=== PATIENT | male | born 1975 | race Caucasian/White ===

== ENCOUNTER 2016-05-02 15:37 | Emergency (ER) | payer OTHER ==
[~2016-05-02] VITALS: Wt 122.5 kg
[~2016-05-02 15:37] MED LIST: ACULAR 3 ML3 M1 OP; ALEVE220 MG PO; AMOXICILLIN500 M2 PO; AMOXICILLIN500 MG PO; ANAPROX DS550 MG PO; ANTIVERT/2525 M1 PO; AUGMENTIN 875 M1 TAB PO; Amitriptyline H10 MG PO; B COMPLETE1 EACH PO; BACLOFEN10 MG PO; BACLOFEN20 M1 PO; BACTRIM DS 8001 TA1 PO; CIPRODEX 0.3%-7.5 ML OT; CLARITIN10 MG PO; GABAPENTIN TAB600 MG PO; HYCODAN/HYDROMET5 ML PO; HYDROCODONE BIT1 T11 PO; IBU-8800 MG PO; KEFLEX500 MG PO; LIDOCAINE VISC100 ML MM; MACROBID100 M1 PO; MEDROL DOSEPAK4 MG PO; MUSCLE RELAXER; Motrin,Rufen800 MG PO; NAPROSYN500 MG PO; NKHM; NORCO 10-325 T1 EACH PO; NORCO 5-325 TA1 EACH PO; PENICILLIN-VK500 MG PO; PERCOCET 325 MG1 TA2 PO; PREDNISONE10 MG PO; PROVENTIL0.09 MG/A1 INH; Peridex 473 ML473 ML PO; TESSALON PERLE100 M1 PO; TOBREX OPHTH S2.5 ML OPH; ULTRAM50 MG PO; ZANTAC150 MG PO; ZITHROMAX250 MG PO; ZOFRAN4 MG PO
[2016-05-02 15:40] VITALS: BP 142/71
[2016-05-02 16:23] LABS: BASO # 0.1 10*3/uL (0.0-0.1); BASO % 0.8 % (0.0-1.0); EOS # 0.2 10*3/uL (0.0-0.4); EOS % 3.3 % (1.0-4.0); HEMATOCRIT 45.4 % (42.0-52.0); HEMOGLOBIN 15.1 g/dl (14.0-18.0); LYMPH # 1.3 10*3/uL (1.3-4.4); LYMPH % 20.8 % (27.0-41.0); MEAN CELL VOLUME 90.3 fl (80.0-94.0); MEAN CORPUSCULAR HGB CONC 33.3 g/dl (33.0-37.0); MEAN PLATELET VOLUME 11.1 fl (9.6-12.3); MONO # 0.7 10*3/uL (0.1-1.0); MONO % 10.6 % (3.0-9.0); NEUT # 3.9 10*3/uL (2.3-7.9); NEUT % 64.3 % (47.0-73.0); PLATELET COUNT AUTOMATED 236 10*3/uL (130-400); RED BLOOD COUNT 5.03 10*6/uL (4.50-5.90); RED CELL DISTRI WIDTH 13.2 % (0-14.5); WHITE BLOOD COUNT 6.1 10*3/uL (4.8-10.8)
[2016-05-02 16:40] LABS: ALBUMIN 3.5 gm/dl (3.1-4.5); ALKALINE PHOSPHATASE 94 U/L (45-117); BILIRUBIN, TOTAL 0.3 mg/dl (0.2-1.0); BUN 13 mg/dl (7-24); CARBON DIOXIDE 24 mmol/L (21-32); CHLORIDE 109 mmol/L (98-107); EST GLOM FILT AFRICAN AMERICAN > 60 ml/min; GLUCOSE 103 mg/dL (65-99); SGOT/AST 29 IU/L (3-35); SGPT/ALT 37 U/L (12-78); SODIUM 144 mmol/L (136-145); TOTAL PROTEIN 6.6 gm/dL (6.4-8.2)
[2016-05-02 18:34] LABS: BILIRUBIN NEGATIVE (NEGATIVE); BLOOD TRACE-LYSED (NEGATIVE); CLARITY CLEAR (CLEAR); COLOR YELLOW (YELLOW); GLUCOSE NEGATIVE (NEGATIVE); KETONE NEGATIVE (NEGATIVE); LEUKO ESTERASE NEGATIVE (NEGATIVE); NITRITE NEGATIVE (NEGATIVE); PH 6.5 (5.0-9.0); PROTEIN NEGATIVE (NEGATIVE)
[2016-05-02 18:40] LABS: URINE REFLEX COMMENT NO (NO); WBC 0-2 wbc/hpf (0-5)
[2016-05-28] MEDS ORDERED: PREDNISONE10 MG PO (14:14)
[2016-06-11] MEDS ORDERED: AMOXICILLIN500 M2 PO (17:40)
[2016-06-11] MEDS ORDERED: IBU800 MG PO (17:40)
[2016-06-11] MEDS ORDERED: PREDNISONE10 MG PO (17:45)
[2016-06-11] MEDS ORDERED: FLONASE ALLERG9.9 ML NAS (17:45)
[2016-06-11] MEDS ORDERED: ROBITUSSIN AC 110 ML PO (17:45)
[2016-06-11] MEDS ORDERED: CLARITIN10 MG PO (17:45)
== END 2016-05-02 19:04 | disposition home or self-care (01) ==
LOC: ED 15:37
PROVIDERS: Nurse Practitioner Family
DX: A08.4 Viral intestinal infection, unspecified (principal); F17.200 Nicotine dependence, unspecified, uncomplicated

== ENCOUNTER 2016-08-07 00:37 | Emergency (ER) | payer OTHER ==
[~2016-08-07] VITALS: Ht 185.4 cm; Wt 122.5 kg
[~2016-08-07 00:37] MED LIST changes: +FLONASE ALLERG9.9 ML NAS; +IBU800 MG PO; +ROBITUSSIN AC 110 ML PO
[2016-08-07 00:46] VITALS: BP 132/73
[2016-08-07 01:21] LABS: BASO # 0.1 10*3/uL (0.0-0.1); BASO % 0.7 % (0.0-1.0); EOS # 0.4 10*3/uL (0.0-0.4); EOS % 3.5 % (1.0-4.0); HEMATOCRIT 43.9 % (42.0-52.0); HEMOGLOBIN 15.1 g/dl (14.0-18.0); LYMPH # 3.5 10*3/uL (1.3-4.4); MEAN CELL VOLUME 88.2 fl (80.0-94.0); MEAN CORPUSCULAR HGB 30.3 pg (27.0-31.0); MEAN CORPUSCULAR HGB CONC 34.4 g/dl (33.0-37.0); MEAN PLATELET VOLUME 10.8 fl (9.6-12.3); MONO # 0.6 10*3/uL (0.1-1.0); MONO % 4.6 % (3.0-9.0); NEUT # 7.4 10*3/uL (2.3-7.9); PLATELET COUNT AUTOMATED 245 10*3/uL (130-400); RED BLOOD COUNT 4.98 10*6/uL (4.50-5.90); RED CELL DISTRI WIDTH 13.2 % (0-14.5)
[2016-08-07 01:34] LABS: BUN 14 mg/dl (7-24); CARBON DIOXIDE 25 mmol/L (21-32); CHLORIDE 109 mmol/L (98-107); EST GLOM FILT AFRICAN AMERICAN > 60 ml/min; GLUCOSE 120 mg/dL (65-99); POTASSIUM 3.8 mmol/L (3.5-5.1); SODIUM 143 mmol/L (136-145)
[2016-08-07] MEDS ORDERED: CEFDINIR300 MG PO (01:50)
[2016-08-07] MEDS ORDERED: PREDNISONE20 M1 PO (01:50)
[2016-08-07] MEDS ORDERED: PROAIR HFA8.5 GM INH (01:50)
== END 2016-08-07 02:10 | disposition home or self-care (01) ==
LOC: ED 00:37
PROVIDERS: Emergency Medicine Emergency Medical Services
DX: J20.9 Acute bronchitis, unspecified (principal); Z79.899 Other long term (current) drug therapy

== ENCOUNTER 2016-08-16 20:04 | Emergency (ER) | payer OTHER ==
[~2016-08-16] VITALS: Ht 185.4 cm; Wt 122.5 kg
[~2016-08-16 20:04] MED LIST changes: +CEFDINIR300 MG PO; +PREDNISONE20 M1 PO; +PROAIR HFA8.5 GM INH
[2016-08-16 20:50] LABS: BASO % 0.3 % (0.0-1.0); EOS # 0.1 10*3/uL (0.0-0.4); HEMATOCRIT 47.3 % (42.0-52.0); HEMOGLOBIN 16.1 g/dl (14.0-18.0); LYMPH # 1.7 10*3/uL (1.3-4.4); LYMPH % 14.9 % (27.0-41.0); MEAN CELL VOLUME 88.7 fl (80.0-94.0); MEAN CORPUSCULAR HGB 30.2 pg (27.0-31.0); MEAN PLATELET VOLUME 10.8 fl (9.6-12.3); MONO # 0.8 10*3/uL (0.1-1.0); MONO % 6.6 % (3.0-9.0); NEUT # 8.9 10*3/uL (2.3-7.9); NEUT % 76.9 % (47.0-73.0); PLATELET COUNT AUTOMATED 224 10*3/uL (130-400); RED BLOOD COUNT 5.33 10*6/uL (4.50-5.90); RED CELL DISTRI WIDTH 13.4 % (0-14.5); WHITE BLOOD COUNT 11.6 10*3/uL (4.8-10.8)
[2016-08-16 21:02] LABS: BUN 13 mg/dl (7-24); C-REACTIVE PROTEIN 5.78 MG/DL (0-0.3); CARBON DIOXIDE 25 mmol/L (21-32); CHLORIDE 105 mmol/L (98-107); EST GLOM FILT AFRICAN AMERICAN > 60 ml/min; GLUCOSE 108 mg/dL (65-99); POTASSIUM 3.8 mmol/L (3.5-5.1); SODIUM 138 mmol/L (136-145)
[2016-08-16 22:06] LABS: BILIRUBIN NEGATIVE (NEGATIVE); BLOOD 1+ (NEGATIVE); CLARITY CLEAR (CLEAR); COLOR YELLOW (YELLOW); GLUCOSE NEGATIVE (NEGATIVE); KETONE NEGATIVE (NEGATIVE); LEUKO ESTERASE NEGATIVE (NEGATIVE); NITRITE NEGATIVE (NEGATIVE); PH 5.5 (5.0-9.0); PROTEIN NEGATIVE (NEGATIVE); UROBILINOGEN 0.2 E.U./dl (0.2-1.0)
[2016-08-16 22:23] LABS: BACTERIA TRACE; URINE REFLEX COMMENT YES (NO)
[2016-08-16 22:45] VITALS: BP 127/69
[2016-08-16] MEDS ORDERED: ZOFRAN ODT4 MG SL (22:46)
== END 2016-08-16 23:30 | disposition home or self-care (01) ==
LOC: ED 20:04
PROVIDERS: Emergency Medicine Emergency Medical Services
DX: A08.4 Viral intestinal infection, unspecified (principal); F17.200 Nicotine dependence, unspecified, uncomplicated; Z79.899 Other long term (current) drug therapy

== ENCOUNTER 2016-09-19 22:12 | Emergency (ER) | payer OTHER ==
[~2016-09-19] VITALS: Ht 185.4 cm; Wt 122.5 kg
[~2016-09-19 22:12] MED LIST changes: +ZOFRAN ODT4 MG SL
[2016-09-19 23:04] LABS: BASO # 0.1 10*3/uL (0.0-0.1); BASO % 0.8 % (0.0-1.0); EOS # 0.4 10*3/uL (0.0-0.4); EOS % 3.8 % (1.0-4.0); HEMATOCRIT 43.2 % (42.0-52.0); HEMOGLOBIN 14.5 g/dl (14.0-18.0); LYMPH # 3.6 10*3/uL (1.3-4.4); LYMPH % 32.5 % (27.0-41.0); MEAN CELL VOLUME 89.8 fl (80.0-94.0); MEAN CORPUSCULAR HGB 30.1 pg (27.0-31.0); MEAN CORPUSCULAR HGB CONC 33.6 g/dl (33.0-37.0); MEAN PLATELET VOLUME 11.1 fl (9.6-12.3); MONO # 0.6 10*3/uL (0.1-1.0); MONO % 5.9 % (3.0-9.0); NEUT # 6.2 10*3/uL (2.3-7.9); NEUT % 56.8 % (47.0-73.0); PLATELET COUNT AUTOMATED 230 10*3/uL (130-400); RED BLOOD COUNT 4.81 10*6/uL (4.50-5.90); RED CELL DISTRI WIDTH 12.7 % (0-14.5); WHITE BLOOD COUNT 10.9 10*3/uL (4.8-10.8)
[2016-09-19 23:20] LABS: ALBUMIN 3.4 gm/dl (3.1-4.5); ALKALINE PHOSPHATASE 97 U/L (45-117); BILIRUBIN, TOTAL 0.3 mg/dl (0.2-1.0); BUN 11 mg/dl (7-24); CARBON DIOXIDE 25 mmol/L (21-32); CHLORIDE 109 mmol/L (98-107); EST GLOM FILT AFRICAN AMERICAN > 60 ml/min; GLUCOSE 110 mg/dL (65-99); POTASSIUM 3.8 mmol/L (3.5-5.1); SGOT/AST 27 IU/L (3-35); SGPT/ALT 44 U/L (12-78); SODIUM 142 mmol/L (136-145); TOTAL PROTEIN 6.4 gm/dL (6.4-8.2)
[2016-09-19] MEDS ORDERED: FLONASE ALLERG9.9 ML NS (23:44)
[2016-09-19] MEDS ORDERED: AUGMENTIN 875875 MG PO (23:44)
[2016-09-19] MEDS ORDERED: MECLIZINE HCL25 M2 PO (23:44)
[2016-09-19 23:59] VITALS: BP 145/83
== END 2016-09-20 00:31 | disposition home or self-care (01) ==
LOC: ED 22:12
PROVIDERS: Physician Assistant
DX: J01.90 Acute sinusitis, unspecified (principal); R42 Dizziness and giddiness; F17.200 Nicotine dependence, unspecified, uncomplicated; Z79.899 Other long term (current) drug therapy

== ENCOUNTER 2016-10-28 18:27 | Emergency (ER) | payer OTHER ==
[~2016-10-28] VITALS: Ht 185.4 cm; Wt 122.5 kg
[~2016-10-28 18:27] MED LIST changes: +AUGMENTIN 875875 MG PO; +FLONASE ALLERG9.9 ML NS; +MECLIZINE HCL25 M2 PO
[2016-10-28 18:42] VITALS: BP 149/80
[2016-10-28] MEDS ORDERED: CYCLOBENZAPRINE5 M3 PO (19:40)
== END 2016-10-28 19:45 | disposition home or self-care (01) ==
LOC: ED 18:27
DX: M54.12 Radiculopathy, cervical region (principal); M25.512 Pain in left shoulder; M25.511 Pain in right shoulder; F17.200 Nicotine dependence, unspecified, uncomplicated; Z79.899 Other long term (current) drug therapy

== ENCOUNTER 2016-12-15 21:49 | Emergency (ER) | payer OTHER ==
[~2016-12-15 21:49] MED LIST changes: +CYCLOBENZAPRINE5 M3 PO
[2016-12-15 22:07] VITALS: BP 156/74
[2016-12-15] MEDS ORDERED: NAPROSYN500 MG PO (22:15)
== END 2016-12-15 22:19 | disposition home or self-care (01) ==
LOC: ED 21:49
DX: G56.03 Carpal tunnel syndrome, bilateral upper limbs (principal); Z79.899 Other long term (current) drug therapy

== ENCOUNTER 2017-04-11 19:29 | Emergency (ER) | payer OTHER ==
[~2017-04-11] VITALS: Ht 185.4 cm; Wt 127.0 kg
[2017-04-11 19:34] VITALS: BP 112/62
[2017-04-11] MEDS ORDERED: OMNICEF300 MG PO (20:11)
== END 2017-04-11 20:45 | disposition home or self-care (01) ==
LOC: ED 19:29
DX: J01.00 Acute maxillary sinusitis, unspecified (principal); H66.003 Acute suppurative otitis media without spontaneous rupture of ear drum, bilateral; R11.2 Nausea with vomiting, unspecified; F17.200 Nicotine dependence, unspecified, uncomplicated; Z79.899 Other long term (current) drug therapy

== ENCOUNTER 2017-04-25 15:48 | Emergency (ER) | payer OTHER ==
[~2017-04-25] VITALS: Ht 182.8 cm; Wt 127.0 kg
[~2017-04-25 15:48] MED LIST changes: +OMNICEF300 MG PO
[2017-04-25 16:29] LABS: BASO # 0.1 10*3/uL (0.0-0.1); EOS # 0.4 10*3/uL (0.0-0.4); EOS % 3.6 % (1.0-4.0); HEMATOCRIT 45.2 % (42.0-52.0); HEMOGLOBIN 15.1 g/dl (14.0-18.0); LYMPH % 29.3 % (27.0-41.0); MEAN CORPUSCULAR HGB 29.7 pg (27.0-31.0); MEAN CORPUSCULAR HGB CONC 33.4 g/dl (33.0-37.0); MEAN PLATELET VOLUME 11.1 fl (9.6-12.3); MONO # 0.6 10*3/uL (0.1-1.0); MONO % 5.6 % (3.0-9.0); NEUT # 6.2 10*3/uL (2.3-7.9); NEUT % 60.4 % (47.0-73.0); PLATELET COUNT AUTOMATED 251 10*3/uL (130-400); RED BLOOD COUNT 5.08 10*6/uL (4.50-5.90); RED CELL DISTRI WIDTH 13.1 % (0-14.5); WHITE BLOOD COUNT 10.3 10*3/uL (4.8-10.8)
[2017-04-25 16:41] LABS: BUN 15 mg/dl (7-24); CHLORIDE 106 mmol/L (98-107); CREATININE 1.12 mg/dL (0.70-1.30); SODIUM 138 mmol/L (136-145)
[2017-04-25 17:57] VITALS: BP 150/87
== END 2017-04-25 19:04 | disposition home or self-care (01) ==
LOC: ED 15:48
PROVIDERS: Emergency Medicine
DX: H53.8 Other visual disturbances (principal); F10.10 Alcohol abuse, uncomplicated; F17.200 Nicotine dependence, unspecified, uncomplicated; Z79.899 Other long term (current) drug therapy

== ENCOUNTER → 2017-06-23 | Outpatient (CLI) | payer OTHER | END | disposition home or self-care (01) | LOC: MRI 10:50 | DX: M47.892 Other spondylosis, cervical region (principal); H46.01 Optic papillitis, right eye; H53.8 Other visual disturbances ==

== ENCOUNTER 2017-09-02 23:56 | Emergency (ER) | payer OTHER ==
[~2017-09-02] VITALS: Ht 185.4 cm; Wt 127.0 kg
[2017-09-02 23:58] VITALS: BP 134/83
[2017-09-03] MEDS ORDERED: PREDNISONE10 MG PO (00:11)
[2017-09-03] MEDS ORDERED: Motrin,Rufen800 MG PO (00:11)
[2017-09-03] MEDS ORDERED: Orphenadrine C100 MG PO (00:11)
== END 2017-09-03 00:25 | disposition home or self-care (01) ==
LOC: ED 23:56
DX: M54.12 Radiculopathy, cervical region (principal); M50.323 Other cervical disc degeneration at C6-C7 level; F17.200 Nicotine dependence, unspecified, uncomplicated; F10.10 Alcohol abuse, uncomplicated; Z79.899 Other long term (current) drug therapy

== ENCOUNTER → 2017-09-21 | Outpatient (CLI) | payer OTHER ==
[~2017-09-21] MED LIST changes: +AVPAK AZITHROM250 M1 PO; +Orphenadrine C100 MG PO
[2017-09-21 10:56] LABS: BASO # 0.1 10*3/uL (0.0-0.1); EOS # 0.3 10*3/uL (0.0-0.4); EOS % 3.2 % (1.0-4.0); HEMATOCRIT 49.9 % (42.0-52.0); HEMOGLOBIN 16.3 g/dl (14.0-18.0); LYMPH # 2.6 10*3/uL (1.3-4.4); LYMPH % 33.1 % (27.0-41.0); MEAN CELL VOLUME 91.2 fl (80.0-94.0); MEAN CORPUSCULAR HGB 29.8 pg (27.0-31.0); MEAN CORPUSCULAR HGB CONC 32.7 g/dl (33.0-37.0); MEAN PLATELET VOLUME 11.5 fl (9.6-12.3); MONO # 0.5 10*3/uL (0.1-1.0); MONO % 6.7 % (3.0-9.0); NEUT # 4.3 10*3/uL (2.3-7.9); NEUT % 55.6 % (47.0-73.0); PLATELET COUNT AUTOMATED 213 10*3/uL (130-400); RED BLOOD COUNT 5.47 10*6/uL (4.50-5.90); WHITE BLOOD COUNT 7.8 10*3/uL (4.8-10.8)
[2017-09-21 11:25] LABS: ALBUMIN 3.8 gm/dl (3.1-4.5); BUN 13 mg/dl (7-24); CHLORIDE 106 mmol/L (98-107); CHOLESTEROL 194 mg/dL (<200); CREATININE 0.99 mg/dL (0.70-1.30); POTASSIUM 4.4 mmol/L (3.5-5.1); SGOT/AST 14 IU/L (3-35); SGPT/ALT 27 U/L (12-78); SODIUM 141 mmol/L (136-145); TOTAL PROTEIN 6.9 gm/dL (6.4-8.2); TRIGLYCERIDES 124 mg/dl (<150); VLDL CHOLESTEROL 25 mg/dL (6-40)
[2017-09-21 11:33] LABS: ALKALINE PHOSPHATASE 93 U/L (45-117); HDL CHOLESTEROL 46 mg/dl (40-60); LDL CHOLESTEROL 123 mg/dL (9-159)
== END | disposition home or self-care (01) ==
LOC: LAB 09:55
PROVIDERS: Internal Medicine
DX: E55.9 Vitamin D deficiency, unspecified (principal); E66.09 Other obesity due to excess calories; I10 Essential (primary) hypertension

== ENCOUNTER 2017-10-10 21:31 | Emergency (ER) | payer OTHER ==
[~2017-10-10] VITALS: Ht 185.4 cm; Wt 124.7 kg
[~2017-10-10 21:31] MED LIST changes: -AVPAK AZITHROM250 M1 PO
[2017-10-10 21:33] VITALS: BP 151/87
[2017-10-10] MEDS ORDERED: AVPAK AZITHROM250 M1 PO (22:08)
== END 2017-10-10 22:25 | disposition home or self-care (01) ==
LOC: ED 21:31
DX: R05 Cough (principal); J45.909 Unspecified asthma, uncomplicated; F17.200 Nicotine dependence, unspecified, uncomplicated; Z79.899 Other long term (current) drug therapy

== ENCOUNTER → 2018-02-14 | Outpatient (CLI) | payer OTHER ==
[~2018-02-14] MED LIST changes: +AVPAK AZITHROM250 M1 PO; +ROBITUSSIN DM 101 OZ PO; +ZYRTEC10 M3 PO; +Zofran4 MG SL
== END | disposition home or self-care (01) ==
LOC: MRI 02-12 09:00
DX: H46.9 Unspecified optic neuritis (principal); H53.8 Other visual disturbances

== ENCOUNTER 2018-03-11 19:23 | Emergency (ER) | payer OTHER ==
[~2018-03-11] VITALS: Ht 185.4 cm; Wt 131.5 kg
[2018-03-11 19:24] VITALS: BP 146/85
[2018-03-11] MEDS ORDERED: AUGMENTIN 875875 MG PO (20:31)
[2018-03-11] MEDS ORDERED: TESSALON PERLE100 M1 PO (20:31)
== END 2018-03-11 20:52 | disposition home or self-care (01) ==
LOC: ED 19:23
DX: J01.90 Acute sinusitis, unspecified (principal); F17.200 Nicotine dependence, unspecified, uncomplicated; Z79.899 Other long term (current) drug therapy

== ENCOUNTER 2018-04-26 11:45 | Emergency (ER) | payer OTHER ==
[~2018-04-26] VITALS: Ht 185.4 cm; Wt 129.3 kg
[2018-04-26 11:47] VITALS: BP 131/84
[2018-04-26] MEDS ORDERED: AUGMENTIN 875875 MG PO (12:27)
[2018-04-26] MEDS ORDERED: TESSALON PERLE100 M1 PO (12:27)
[2018-04-27] MEDS ORDERED: NAPROXEN500 MG PO (21:33)
[2018-06-20] MEDS ORDERED: IBU800 MG PO (22:15)
[2018-06-20] MEDS ORDERED: CYCLOBENZAPRINE10 MG PO (22:15)
== END 2018-04-26 14:55 | disposition home or self-care (01) ==
LOC: ED 11:45
DX: J32.9 Chronic sinusitis, unspecified (principal); Z79.2 Long term (current) use of antibiotics; Z79.899 Other long term (current) drug therapy

== ENCOUNTER 2018-04-27 21:25 | Emergency (ER) | payer OTHER ==
[~2018-04-27] VITALS: Ht 185.4 cm; Wt 129.3 kg
--- NOTE | ~2018-04-27 | EKG ---
[place], [place] ELECTROCARDIOGRAM REPORT NAME: CHICHI VOSS UNIT #: [id number] ROOM: DOCTOR: EPIPHANY DRAFT REPORT BIRTHDATE: [birth year] [facility] Test Date: 2018-04-27 Test Time: 22:00:11 Pat Name: CHICHI VOSS Department: ER Room: 12 Gender: M Installation Service Representative: Daiana Arrington : 1975 Requested By: CAROLE CORNELL Order Number: [id number] Reading MD: Nicholas Watts MD Measurements Intervals [place] Rate: 98 P: -27 SD: 122 QRS: 0 QRSD: 86 T: 30 QT: 342 QTc: 437 Interpretive Statements Sinus rhythm Normal ECG Electronically Signed On 05-03-2018 23:54:17 PST by Nicholas Watts MD CM:EKGRPT:ELECTROCARDIOGRAM REPORT [id number] CAROLE WEBER DRAFT REPORT CAROLE CORNELL DO
[2018-04-27] MEDS ORDERED: NAPROXEN500 MG PO (21:33)
[2018-04-27 21:51] LABS: BASO # 0.1 10*3/uL (0.0-0.1); BASO % 0.9 % (0.0-1.0); EOS # 0.5 10*3/uL (0.0-0.4); EOS % 6.7 % (1.0-4.0); HEMATOCRIT 45.1 % (42.0-52.0); LYMPH % 25.7 % (27.0-41.0); MEAN CELL VOLUME 91.3 fl (80.0-94.0); MEAN CORPUSCULAR HGB 30.4 pg (27.0-31.0); MEAN CORPUSCULAR HGB CONC 33.3 g/dl (33.0-37.0); MEAN PLATELET VOLUME 10.7 fl (9.6-12.3); MONO # 0.8 10*3/uL (0.1-1.0); MONO % 10.2 % (3.0-9.0); NEUT # 4.5 10*3/uL (2.3-7.9); NEUT % 56.2 % (47.0-73.0); PLATELET COUNT AUTOMATED 235 10*3/uL (130-400); RED BLOOD COUNT 4.94 10*6/uL (4.50-5.90); RED CELL DISTRI WIDTH 12.8 % (0-14.5)
[2018-04-27 22:13] LABS: ALBUMIN 3.5 gm/dl (3.1-4.5); ALKALINE PHOSPHATASE 92 U/L (45-117); BUN 15 mg/dl (7-24); CHLORIDE 109 mmol/L (98-107); SGOT/AST 22 IU/L (3-35); SGPT/ALT 31 U/L (12-78); SODIUM 142 mmol/L (136-145); TOTAL PROTEIN 6.7 gm/dL (6.4-8.2)
[2018-06-20] MEDS ORDERED: CYCLOBENZAPRINE10 MG PO (22:15)
[2018-06-20] MEDS ORDERED: IBU800 MG PO (22:15)
== END 2018-04-28 00:45 | disposition home or self-care (01) ==
LOC: ED 21:25
PROVIDERS: Emergency Medicine
DX: J20.9 Acute bronchitis, unspecified (principal); F17.200 Nicotine dependence, unspecified, uncomplicated; Z79.2 Long term (current) use of antibiotics; Z79.899 Other long term (current) drug therapy

== ENCOUNTER → 2020-09-11 | Outpatient (CLI) | payer OTHER ==
[~2020-09-11] MED LIST changes: +CYCLOBENZAPRINE10 MG PO; +NAPROXEN500 MG PO
[2020-09-11 17:58] LABS: BASO # 0.1 10*3/uL (0.0-0.1); BASO % 0.8 % (0.0-1.0); EOS # 0.1 10*3/uL (0.0-0.4); EOS % 1.4 % (1.0-4.0); LYMPH # 2.5 10*3/uL (1.3-4.4); LYMPH % 28.8 % (27.0-41.0); MEAN CELL VOLUME 90.9 fl (80.0-94.0); MEAN CORPUSCULAR HGB 29.5 pg (27.0-31.0); MEAN CORPUSCULAR HGB CONC 32.5 g/dl (33.0-37.0); MEAN PLATELET VOLUME 10.8 fl (9.6-12.3); MONO # 0.6 10*3/uL (0.1-1.0); MONO % 6.6 % (3.0-9.0); NEUT # 5.4 10*3/uL (2.3-7.9); NEUT % 62.2 % (47.0-73.0); PLATELET COUNT AUTOMATED 271 10*3/uL (130-400); RED BLOOD COUNT 5.28 10*6/uL (4.50-5.90); RED CELL DISTRI WIDTH 12.7 % (0-14.5); WHITE BLOOD COUNT 8.7 10*3/uL (4.8-10.8)
[2020-09-11 18:27] LABS: ALBUMIN 3.7 gm/dl (3.1-4.5); ALKALINE PHOSPHATASE 113 U/L (45-117); BUN 15 mg/dl (7-24); CHLORIDE 109 mmol/L (98-107); CREATININE 1.14 mg/dL (0.70-1.30); POTASSIUM 3.8 mmol/L (3.5-5.1); SGOT/AST 16 IU/L (3-35); SGPT/ALT 35 U/L (12-78); SODIUM 139 mmol/L (136-145); TOTAL PROTEIN 7.3 gm/dL (6.4-8.2)
[2020-09-12 06:07] LABS: HEP B CORE AB, IGM Negative (Negative); HEPATITIS B SURFACE AG Negative (Negative); HEPATITIS C VIRUS ANTIBODY <0.1 s/co (0.0-0.9)
[2020-09-12 08:07] LABS: RHEUMATOID ARTHRITIS FACTOR <10.0 IU/mL (0.0-13.9)
[2020-09-13 04:05] LABS: CCP ANTIBODIES IGG/IGA 6 units (0-19)
== END | disposition home or self-care (01) ==
LOC: LAB 16:57
PROVIDERS: ATTEND Specialist
DX: M16.0 Bilateral primary osteoarthritis of hip (principal); M17.0 Bilateral primary osteoarthritis of knee; M51.36 Other intervertebral disc degeneration, lumbar region; M50.30 Other cervical disc degeneration, unspecified cervical region; M25.761 Osteophyte, right knee; M25.762 Osteophyte, left knee; L40.59 Other psoriatic arthropathy; M25.78 Osteophyte, vertebrae

== ENCOUNTER → 2020-11-14 | Outpatient (CLI) | payer OTHER ==
[~2020-11-14] MED LIST changes: +PROVENTIL HFA6.7 GM INH
[2020-11-14 17:05] LABS: BASO # 0.1 10*3/uL (0.0-0.1); BASO % 0.6 % (0.0-1.0); EOS # 0.2 10*3/uL (0.0-0.4); EOS % 2.4 % (1.0-4.0); LYMPH # 2.3 10*3/uL (1.3-4.4); LYMPH % 25.9 % (27.0-41.0); MEAN CELL VOLUME 91.6 fl (80.0-94.0); MEAN CORPUSCULAR HGB 29.9 pg (27.0-31.0); MEAN CORPUSCULAR HGB CONC 32.7 g/dl (33.0-37.0); MONO # 0.5 10*3/uL (0.1-1.0); MONO % 6.2 % (3.0-9.0); NEUT # 5.6 10*3/uL (2.3-7.9); NEUT % 64.6 % (47.0-73.0); PLATELET COUNT AUTOMATED 269 10*3/uL (130-400); RED BLOOD COUNT 4.91 10*6/uL (4.50-5.90); WHITE BLOOD COUNT 8.7 10*3/uL (4.8-10.8)
[2020-11-14 17:30] LABS: BUN 13 mg/dl (7-24); CREATININE 1.02 mg/dL (0.70-1.30); SGOT/AST 20 IU/L (3-35); SGPT/ALT 32 U/L (12-78)
== END | disposition home or self-care (01) ==
LOC: LAB 16:03
PROVIDERS: ATTEND Specialist
DX: L40.50 Arthropathic psoriasis, unspecified (principal)

== ENCOUNTER 2020-12-23 09:31 | Emergency (ER) | payer OTHER ==
[~2020-12-23 09:31] MED LIST changes: -PROVENTIL HFA6.7 GM INH
[2020-12-23 09:38] VITALS: BP 130/86
[2020-12-23] MEDS ORDERED: PREDNISONE20 M1 PO (13:53)
[2020-12-23] MEDS ORDERED: PROVENTIL HFA6.7 GM INH (13:53)
== END 2020-12-23 14:00 | disposition home or self-care (01) ==
LOC: ED 09:31
DX: U07.1 COVID-19 (principal)

== ENCOUNTER 2022-06-27 14:39 | Emergency (ER) | payer OTHER ==
[~2022-06-27] VITALS: Wt 131.5 kg
[~2022-06-27 14:39] MED LIST changes: +PROVENTIL HFA6.7 GM INH
[2022-06-27 14:47] VITALS: BP 130/69
[2022-06-27 19:05] LABS: HEMATOCRIT 49.2 % (42.0-52.0); MEAN CELL VOLUME 87.7 fl (80.0-94.0); MEAN CORPUSCULAR HGB 29.1 pg (27.0-31.0); MEAN CORPUSCULAR HGB CONC 33.1 g/dl (33.0-37.0); MEAN PLATELET VOLUME 10.7 fl (9.6-12.3); PLATELET COUNT AUTOMATED 341 10*3/uL (130-400); RED BLOOD COUNT 5.61 10*6/uL (4.50-5.90); WHITE BLOOD COUNT 11.5 10*3/uL (4.8-10.8)
[2022-06-27 19:06] LABS: MANUAL DIFF REFLEX YES
[2022-06-27 19:41] LABS: ALKALINE PHOSPHATASE 106 U/L (46-116); BUN 14 mg/dl (9-23); CHLORIDE 105 mmol/L (98-107); LIPASE 45 U/L (12-53); POTASSIUM 4.2 mmol/L (3.4-5.1); SGPT/ALT 33 U/L (10-49); TOTAL PROTEIN 7.5 gm/dL (6.0-8.0)
[2022-06-27 19:43] LABS: PLATELET SUFFICIENCY NORMAL (NORMAL); TOTAL CELLS COUNTED 100 #CELLS
[2022-06-27 19:44] LABS: BURR CELLS FEW
[2022-06-27] MEDS ORDERED: ONDANSETRON4 MG SL (20:20)
== END 2022-06-27 20:32 | disposition home or self-care (01) ==
LOC: ED 14:39
PROVIDERS: Physician Assistant
DX: K52.9 Noninfective gastroenteritis and colitis, unspecified (principal)

== ENCOUNTER → 2022-12-01 | Outpatient (CLI) | payer OTHER ==
[~2022-12-01] MED LIST changes: +ONDANSETRON4 MG SL
[2022-12-01 16:41] LABS: BASO # 0.1 10*3/uL (0.0-0.1); BASO % 0.7 % (0.0-1.0); EOS # 0.2 10*3/uL (0.0-0.4); EOS % 1.7 % (1.0-4.0); HEMATOCRIT 43.2 % (42.0-52.0); LYMPH # 2.5 10*3/uL (1.3-4.4); LYMPH % 24.3 % (27.0-41.0); MEAN CELL VOLUME 86.7 fl (80.0-94.0); MEAN CORPUSCULAR HGB 30.1 pg (27.0-31.0); MEAN CORPUSCULAR HGB CONC 34.7 g/dl (33.0-37.0); MEAN PLATELET VOLUME 10.4 fl (9.6-12.3); MONO # 0.6 10*3/uL (0.1-1.0); MONO % 5.4 % (3.0-9.0); NEUT # 6.9 10*3/uL (2.3-7.9); NEUT % 67.6 % (47.0-73.0); PLATELET COUNT AUTOMATED 269 10*3/uL (130-400); RED BLOOD COUNT 4.98 10*6/uL (4.50-5.90); RED CELL DISTRI WIDTH 12.8 % (0-14.5); WHITE BLOOD COUNT 10.2 10*3/uL (4.8-10.8)
[2022-12-01 17:19] LABS: ALKALINE PHOSPHATASE 98 U/L (46-116); BUN 9 mg/dl (9-23); CHLORIDE 106 mmol/L (98-107); SGPT/ALT 27 U/L (10-49); TOTAL PROTEIN 6.7 gm/dL (6.0-8.0)
== END | disposition home or self-care (01) ==
LOC: LAB 16:21
PROVIDERS: Nurse Practitioner Family; ATTEND Pediatrics Pediatric Cardiology
DX: L40.0 Psoriasis vulgaris (principal)

== ENCOUNTER → 2023-12-30 | Outpatient (CLI) | payer OTHER ==
[2023-12-30 09:03] LABS: BASO # 0.1 10*3/uL (0.0-0.1); EOS # 0.2 10*3/uL (0.0-0.4); EOS % 2.7 % (1.0-4.0); HEMATOCRIT 49.1 % (42.0-52.0); LYMPH # 2.1 10*3/uL (1.3-4.4); LYMPH % 29.5 % (27.0-41.0); MEAN CELL VOLUME 88.5 fl (80.0-94.0); MEAN CORPUSCULAR HGB 29.4 pg (27.0-31.0); MEAN CORPUSCULAR HGB CONC 33.2 g/dl (33.0-37.0); MEAN PLATELET VOLUME 10.1 fl (9.6-12.3); MONO # 0.6 10*3/uL (0.1-1.0); MONO % 8.3 % (3.0-9.0); NEUT # 4.2 10*3/uL (2.3-7.9); NEUT % 58.4 % (47.0-73.0); PLATELET COUNT AUTOMATED 280 10*3/uL (130-400); RED BLOOD COUNT 5.55 10*6/uL (4.50-5.90); RED CELL DISTRI WIDTH 12.6 % (0-14.5); WHITE BLOOD COUNT 7.1 10*3/uL (4.8-10.8)
[2023-12-30 09:25] LABS: ALKALINE PHOSPHATASE 100 U/L (46-116); BUN 14 mg/dl (9-23); CHLORIDE 106 mmol/L (98-107); POTASSIUM 4.4 mmol/L (3.4-5.1); SGPT/ALT 35 U/L (5-49)
== END | disposition home or self-care (01) ==
LOC: LAB 08:38
PROVIDERS: ATTEND Nurse Practitioner Family
DX: L40.9 Psoriasis, unspecified (principal)

== ENCOUNTER → 2024-07-06 | Outpatient (CLI) | payer OTHER ==
[2024-07-06 10:36] LABS: BASO # 0.1 10*3/uL (0.0-0.1); BASO % 1.2 % (0.0-1.0); EOS # 0.2 10*3/uL (0.0-0.4); EOS % 2.7 % (1.0-4.0); HEMATOCRIT 48.1 % (42.0-52.0); MEAN CELL VOLUME 89.4 fl (80.0-94.0); MEAN CORPUSCULAR HGB 29.4 pg (27.0-31.0); MEAN CORPUSCULAR HGB CONC 32.8 g/dl (33.0-37.0); MEAN PLATELET VOLUME 10.6 fl (9.6-12.3); MONO # 0.5 10*3/uL (0.1-1.0); NEUT # 3.9 10*3/uL (2.3-7.9); NEUT % 58.5 % (47.0-73.0); PLATELET COUNT AUTOMATED 258 10*3/uL (130-400); RED BLOOD COUNT 5.38 10*6/uL (4.50-5.90); RED CELL DISTRI WIDTH 12.7 % (0-14.5); WHITE BLOOD COUNT 6.7 10*3/uL (4.8-10.8)
[2024-07-06 11:02] LABS: ALKALINE PHOSPHATASE 99 U/L (46-116); BUN 9 mg/dl (9-23); CHLORIDE 104 mmol/L (98-107); POTASSIUM 4.5 mmol/L (3.4-5.1); SGPT/ALT 39 U/L (5-49); TOTAL PROTEIN 7.1 gm/dL (6.0-8.0)
== END | disposition home or self-care (01) ==
LOC: LAB 10:12
PROVIDERS: ATTEND Nurse Practitioner Family
DX: L40.0 Psoriasis vulgaris (principal)

== ENCOUNTER → 2025-01-11 | Outpatient (CLI) | payer OTHER ==
[2025-01-11 09:58] LABS: BASO # 0.1 10*3/uL (0.0-0.1); BASO % 1.1 % (0.0-1.0); EOS # 0.1 10*3/uL (0.0-0.4); EOS % 1.0 % (1.0-4.0); MEAN CELL VOLUME 88.5 fl (80.0-94.0); MEAN CORPUSCULAR HGB 29.3 pg (27.0-31.0); MEAN PLATELET VOLUME 11.0 fl (9.6-12.3); MONO # 0.5 10*3/uL (0.1-1.0); MONO % 8.8 % (3.0-9.0); NEUT # 3.2 10*3/uL (2.3-7.9); NEUT % 51.3 % (47.0-73.0); NUCLEATED RED BLOOD CELL 0.0 % (0.0-0.0); NUCLEATED RED BLOOD CELL 0.0 10*3/uL (0.0-0.0); PLATELET COUNT AUTOMATED 247 10*3/uL (130-400); RED CELL DISTRI WIDTH 12.7 % (0-14.5)
[2025-01-11 11:42] LABS: BUN 10 mg/dl (9-23); SGPT/ALT 48 U/L (5-49)
== END | disposition home or self-care (01) ==
LOC: LAB 09:31
PROVIDERS: ATTEND Nurse Practitioner Family
DX: L40.0 Psoriasis vulgaris (principal)

== ENCOUNTER → 2025-01-30 | Outpatient (CLI) | payer OTHER ==
[2025-01-30 10:26] LABS: SGPT/ALT 37.0 U/L (5-49)
== END | disposition home or self-care (01) ==
LOC: LAB 02:38
DX: L40.9 Psoriasis, unspecified (principal)